=== PATIENT | male | born 1970 | race Caucasian/White ===

== ENCOUNTER 2017-09-30 09:14 | Emergency (ER) | payer SELFPAY ==
[~2017-09-30] VITALS: Ht 172.7 cm; Wt 75.0 kg
[2017-09-30 10:52] LABS: BASOPHILS % 0.6 % (0.0-2.0); EOSINOPHILS % 1.9 % (0.0-5.0); HEMATOCRIT. 42.1 % (42.0-52.0); LYMPHOCYTES % 42.8 % (20.0-50.0); MEAN CORPUSCULAR HEMOGLOBIN 30.1 pg (28.0-32.0); MEAN CORPUSCULAR VOLUME 90.8 fL (80.0-94.0); MEAN PLATELET VOLUME 10.3 fl (7.4-10.4); MONOCYTES % 8.2 % (2.0-8.0); NEUTROPHILS % 46.5 % (40.0-76.0); PLATELET 185 x1000/uL (130-400); RED BLOOD CELL COUNT 4.64 mill/uL (4.7-6.1); RED CELL DISTRIBUTION WIDTH 12.9 % (11.6-14.6)
[2017-09-30 10:58] LABS: CHLORIDE 104 mEq/L (98-107)
[2017-09-30 11:01] LABS: PROTHROMBIN TIME 10.7 sec (9.4-11.6)
[2017-09-30 11:07] LABS: CARBON DIOXIDE 28 mEq/L (21-32)
[2017-09-30] MEDS ORDERED: PANTOPRAZOLE SODIUM 40 MG/VIAL IV ONE (12:30)
[2017-09-30 12:50] VITALS: BP 119/86
== END 2017-09-30 13:17 | disposition home or self-care (01) ==
LOC: ER 09:21
DX: K92.2 Gastrointestinal hemorrhage, unspecified (principal); K64.9 Unspecified hemorrhoids; R19.5 Other fecal abnormalities; R79.89 Other specified abnormal findings of blood chemistry
CPT/HCPCS: 36415; 80053; 85025; 85610; 86850; 86900; 86901; 96374; 99284; C9113